=== PATIENT | female | born 1960 | race Caucasian/White ===

== ENCOUNTER 2017-02-15 15:27 | Emergency (ER) | payer OTHER ==
[~2017-02-15] VITALS: Ht 160 cm; Wt 84.6 kg
[2017-02-15 16:34] LABS: CHLORIDE 106 mEq/L (99-109); HEMATOCRIT 31.8 % (36.0-46.0); MCH 18.8 PG (29.0-34.0); MCHC 31.8 G/DL (30.0-36.0); MCV 59.1 FL (83-99); PLATELET COUNT 167 K/uL (156-360); POTASSIUM 3.8 mEq/L (3.7-5.4); RBC DIS.WIDTH-CV 19.2 % (11.8-14.6); RBC DIS.WIDTH-SD 36.3 % (39-53); RED BLOOD COUNT 5.38 M/uL (3.80-5.20); SODIUM 138 mEq/L (136-147); WHITE BLOOD COUNT 7.8 K/uL (4.1-10.2)
[2017-02-15 16:37] LABS: GLUCOSE 113 mg/dL (70-99)
[2017-02-15 16:38] LABS: ANION GAP 12 MEQ/L (2-14)
[2017-02-15 16:39] LABS: TOTAL BILIRUBIN 0.6 mg/dL (0.0-1.0)
[2017-02-15 16:40] LABS: ALKALINE PHOSPHATASE 66 IU/L (3-129)
[2017-02-15 16:41] LABS: GFR ESTIMATE (CALCULATED) > 59 mL/min/
[2017-02-15 16:42] LABS: DIRECT BILIRUBIN 0.3 mg/dL (0.0-0.3); UREA NITROGEN (BUN) 20 mg/dL (9-23)
[2017-02-15 16:44] LABS: LIPASE 17 U/L (1.0-51.0)
[2017-02-15 17:52] LABS: ADD MIUA? NO; BILIRUBIN NEGATIVE; BLOOD NEGATIVE; COLOR YELLOW ((YELLOW)); GLUCOSE (STRIP) NEGATIVE; KETONES NEGATIVE; LEUKOCYTES NEGATIVE; NITRITE NEGATIVE; PROTEIN (STRIP) NEGATIVE; SPECIFIC GRAVITY 1.018 (1.000-1.030); UCUL ADDED? NO; UROBILINOGEN 0.2 MG/DL (0.2-1.0)
[2017-02-15] MEDS ORDERED: ZOFRAN4 MG PO (18:31)
[2017-02-15] MEDS ORDERED: FLAGYL500 MG PO (18:31)
[2017-02-15] MEDS ORDERED: CIPRO500 MG PO (18:31)
[2017-02-15] MEDS ORDERED: PERCOCET 5/31 TABLET PO (18:31)
[2017-02-15 18:39] VITALS: BP 140/82
== END 2017-02-15 18:40 | disposition home or self-care (01) ==
LOC: EME 15:27
PROVIDERS: Emergency Medicine
DX: K57.92 Diverticulitis of intestine, part unspecified, without perforation or abscess without bleeding (principal); R11.10 Vomiting, unspecified
CPT/HCPCS: 74177; 80048; 80076; 81003; 83690; 85027; 99281; 99284; J2270; J2405; J7030

== ENCOUNTER 2018-01-19 13:35 | Emergency (ER) | payer OTHER ==
[~2018-01-19] VITALS: Ht 160 cm; Wt 89.8 kg
[~2018-01-19 13:35] MED LIST: CIPRO500 MG PO; FLAGYL500 MG PO; PERCOCET 5/31 TABLET PO; ZOFRAN4 MG PO
[2018-01-19] MEDS ORDERED: MOTRIN800 MG PO (17:06)
[2018-01-19 17:25] VITALS: BP 139/79
== END 2018-01-19 17:27 | disposition home or self-care (01) ==
LOC: EME 13:35
DX: S00.03XA Contusion of scalp, initial encounter (principal); S06.0X9A Concussion with loss of consciousness of unspecified duration, initial encounter; W00.0XXA Fall on same level due to ice and snow, initial encounter; Y92.481 Parking lot as the place of occurrence of the external cause; Z88.5 Allergy status to narcotic agent; Z88.8 Allergy status to other drugs, medicaments and biological substances
CPT/HCPCS: 70450; 72125; 99281; 99284